=== PATIENT | female | born 1970 | race Caucasian/White ===

== ENCOUNTER 2019-03-27 14:32 | Emergency (ER) | payer OTHER ==
[2019-03-27 14:47] VITALS: BP 150/87; PULSE 92; TEMP 98.1; BMI 25.5
[2019-03-27] MEDS ORDERED: METOCLOPRAMIDE HCL 10 MG TABLET (FP) PO ONE ×2 (15:04→15:29)
[2019-03-27] MEDS ORDERED: ACETAMINOPHEN 325 MG TABLET (FP) PO ONE (15:04)
[2019-03-27] MEDS ORDERED: ACETAMINOPHEN 325 MG TABLET (FP) ONE (15:28)
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
== END 2019-03-27 16:37 | disposition home or self-care (01) ==
LOC: FER 14:32
DX: S16.1XXA Strain of muscle, fascia and tendon at neck level, initial encounter (principal); V43.62XA Car passenger injured in collision with other type car in traffic accident, initial encounter; Y93.89 Activity, other specified; Y92.481 Parking lot as the place of occurrence of the external cause
CPT/HCPCS: 99283-25